=== PATIENT | male | born 1950 | race Caucasian/White ===

== ENCOUNTER → 2016-12-13 | Outpatient (CLI) | payer MEDICARE ==
--- NOTE | 2016-12-13 07:47 | RAD ---
Indication: Elevated liver function tests. The liver demonstrates increased echogenicity consistent with fatty infiltration. No discrete liver mass is detected. The gallbladder is without stones or sludge. No wall thickening or pericholecystic fluid is identified. The pancreas and spleen are unremarkable. The kidneys are unremarkable. The aorta and IVC are unremarkable. There is no ascites. Impression: Fatty infiltration of the liver. The study is otherwise unremarkable.
== END | disposition home or self-care (01) ==
LOC: US 06:32
PROVIDERS: ATTEND Internal Medicine Gastroenterology
DX: R79.89 Other specified abnormal findings of blood chemistry (principal)
CPT/HCPCS: 76700

== ENCOUNTER → 2018-06-21 | Outpatient (CLI) | payer MEDICARE | END | disposition home or self-care (01) | LOC: RAD 11:39 | DX: M47.897 Other spondylosis, lumbosacral region (principal); M54.40 Lumbago with sciatica, unspecified side; M12.88 Other specific arthropathies, not elsewhere classified, other specified site; M48.07 Spinal stenosis, lumbosacral region; M25.78 Osteophyte, vertebrae | CPT/HCPCS: 72100 ==

== ENCOUNTER → 2021-09-17 | Outpatient (CLI) | payer MEDICARE ==
--- NOTE | 2021-09-17 10:45 | KCIC ---
CT of the abdomen and pelvis without contrast. 09/17/2021 9:55 AM Indication: Reason: Hx. kidney stones both sides. Lt flank pain Comparison Study: CT of the abdomen and pelvis without contrast October 27, 2011 Technique: Multidete ctor CT imaging of the abdomen pelvis is obtained without administration of contrast. Findings: Visualized lung bases demonstrate no acute abnormality. Liver is diffusely low in attenuation suggest ing hepatic steatosis. Pancreas is unremarkable. Nonspecific perinephric stranding noted bilaterally. There is a 2 mm nonobstructing stone noted in th e inferior pole the left kidney. No nephrolithiasis is seen on the right. There is no hydronephrosis. The bilateral ureters are unremarkable. Bladder is unremarkable. There is no evidence of bowel obstruction. No acute inflammatory change involving the bowel is identi fied. Distal colonic diverticulosis noted. No free fluid or free air seen in the abdomen or pelvis. N o acute osseous changes are identified. Degenerative changes of the lumbosacral junction noted. There is near-total loss of disc space at L4-5 with bridging anterior osteophytes. Posterior projecting di sc ossific complexes also noted. There is a significant posterior disc bulge at L4-L5 appears to sign ificantly narrow the spinal canal and neural foramen. Consider MRI as clinically indicated. IMPRESSION: 1.No evidence of acute intra-abdominal abnormality. 2. 2 mm nonobstructing stone inferior pole right kidney. No evidence of hydronephrosis or obstructive uropathy. No ureteral stone. 3. Degenerative changes of the inferior lumbar spine posterior lateral projecting disc bulge/herniati on at L4-L5. Correlate with clinical symptoms and consider MRI imaging as indicated. CT DOSING PQRS STATEMENT: One or more of the following individualized dose reduction techniques were utilized for this examinat ion: 1. Automated exposure control 2. Adjustment of the mA and/or kV according to patient size 3. Use of iterative reconstruction technique Electronically signed by: Steve Drummond MD (09/17/2021 10:42 AM) [id number]
== END ==
LOC: KCIC CT 09:50
PROVIDERS: ATTEND Internal Medicine
DX: N20.0 Calculus of kidney (principal); K57.30 Diverticulosis of large intestine without perforation or abscess without bleeding; M47.816 Spondylosis without myelopathy or radiculopathy, lumbar region; M51.26 Other intervertebral disc displacement, lumbar region; M25.78 Osteophyte, vertebrae
CPT/HCPCS: 74176